=== PATIENT | male | born 1975 | race Caucasian/White ===

== ENCOUNTER 2017-03-25 21:11 | Emergency (ER) | payer MEDICAID ==
[2017-03-25 21:11] VITALS: BMI 24.7
--- NOTE | 2017-03-25 21:55 | C.PDOC ---
History Of Present Illness A 41 year old male presents to the ER c/o chest palpitations for 2 days. Patient notes the symptom is intermittent "for a while', but got worse 2 days ago. Patient was seen several times in the ER for the same complaint. 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 Time Seen by Provider: 03/25/17 21:36 Chief Complaint (Nursing): Palpitations History Per: Patient History/Exam Limitations: no limitations Onset/Duration Of Symptoms: Days Current Symptoms Are (Timing): Still Present Severity: Mild Additional History Per: Patient Past Medical History Reviewed: Historical Data, Nursing Documentation, Vital Signs Vital Signs: Last Vital Signs Temp 98 F 03/26/17 00:16 Pulse 84 03/26/17 00:16 Resp 20 03/26/17 00:16 BP 120/71 03/26/17 00:16 Pulse Ox 99 03/26/17 00:19 - Medical History PMH: Anxiety, Hypothyroidism (no med), Migraine Family History: States: Unknown Family Hx - Social History Hx Tobacco Use: No Hx Alcohol Use: Yes Hx Substance Use: No - Immunization History Hx Tetanus Toxoid Vaccination: No Hx Influenza Vaccination: No Hx Pneumococcal Vaccination: No Review Of Systems Except As Marked, All Systems Reviewed And Found Negative. Constitutional: Negative for: Fever, Chills Cardiovascular: Positive for: Palpitations. Negative for: Chest Pain Gastrointestinal: Negative for: Nausea, Vomiting Physical Exam - Physical Exam Appears: Non-toxic, No Acute Distress, Other (Obese ) Skin: Warm, Dry Head: Atraumatic, Normacephalic Eye(s): bilateral: Normal Inspection Cardiovascular: Rhythm Regular, No Murmur Respiratory: Normal Breath Sounds, No Rales, No Rhonchi, No Wheezing Neurological/Psych: Oriented x3, Normal Speech, Normal Cognition, No Other (No focal deficit) ED Course And Treatment - Laboratory Results Result Diagrams: 03/25/17 21:50 03/25/17 21:50 ECG: Interpreted By Me, Viewed By Me ECG Rhythm: Sinus Rhythm (81) ECG Interpretation: Normal Interpretation Of ECG: No ST-T changes O2 Sat by Pulse Oximetry: 99 (RA) Medical Decision Making Medical Decision Making: palpitations - r/o underlying metabolic, cardiac etiology. Plans: -EKG -Bloods labs -CXR -IV fluids -Reassess and disposition Patient is resting comfortably, and is in no acute distress. Patient was instructed to follow up with PMD in 1-2 days for further evaluation. perc neg. notified of mild leukocytosis cxr neg as read by me Disposition - Disposition Referrals: [facility] at [facility] [Outside] [facility] [Outside] Norm Crain MD [Staff Provider] - Disposition: HOME/ ROUTINE Disposition Time: 12:15 Condition: GOOD Additional Instructions: please follow up with your doctor/specialist. return to er with worsening symptoms or concerns. please discuss your lab results with your pmd. Instructions: Palpitations (ED), Leukocytosis (ED) - Clinical Impression Clinical Impression: Palpitations - Scribe Statement The provider has reviewed the documentation as recorded by the Scribe Adrian daniels All medical record entries made by the Scribe were at my direction and personally dictated by me. I have reviewed the chart and agree that the record accurately reflects my personal performance of the history, physical exam, medical decision making, and the department course for this patient. I have also personally directed, reviewed, and agree with the discharge instructions and disposition.
[2017-03-25 22:01] LABS: BASO # 0.2 K/uL (0.0-0.2); BASO % 1.2 % (0.0-2.0); EOS # 0.5 K/uL (0.0-0.7); EOS % 3.4 % (0.0-4.0); LYMPH # 2.3 K/uL (1.0-4.3); LYMPH % 16.9 % (20.0-40.0); MEAN CORPUSCULAR HEMOGLOBIN 29.5 pg (27.0-31.0); MEAN CORPUSCULAR HGB CONC 33.1 g/dL (33.0-37.0); MEAN PLATELET VOLUME 7.4 fL (7.2-11.7); MONO # 0.9 K/uL (0.0-0.8); MONO % 6.9 % (0.0-10.0); RED CELL DISTRIBUTION WIDTH 13.5 % (11.5-14.5); WHITE BLOOD COUNT 13.4 K/uL (4.8-10.8)
[2017-03-25 22:09] LABS: CHLORIDE 102 mmol/L (98-107); POTASSIUM 3.8 mmol/L (3.6-5.2); SODIUM 138 mmol/L (132-148)
[2017-03-25 22:11] LABS: GFR AFRICAN-AMERICAN > 60
[2017-03-25 22:12] LABS: ALB/GLOB RATIO 1.3 (1.0-2.1); ALKALINE PHOSPHATASE 86 U/L (38-126); ALT/SGPT 39 U/L (21-72); AST/SGOT 25 U/L (17-59); BILIRUBIN,TOTAL 0.7 mg/dL (0.2-1.3); BLOOD UREA NITROGEN 15 mg/dL (9-20); CALCIUM 8.9 mg/dl (8.6-10.4); CARBON DIOXIDE 25 mmol/L (22-30); GLUCOSE,RANDOM 116 mg/dL (75-110); TOTAL PROTEIN 7.7 g/dL (6.3-8.3)
[2017-03-25 22:13] LABS: INR 1.2
[2017-03-25 23:55] LABS: RBC URINE 3 /hpf (0-3); URINE BILIRUBIN NEGATIVE (NEGATIVE); URINE BLOOD NEGATIVE (NEGATIVE); URINE COLOR Yellow (YELLOW); URINE GLUCOSE (UA) NORMAL (Normal); URINE KETONE NEGATIVE (NEGATIVE); URINE LEUKOCYTE ESTERASE NEG Leu/uL (Negative); URINE PROTEIN NEGATIVE (NEGATIVE); URINE UROBILINOGEN NORMAL mg/dL (0.2-1.0); WBC URINE < 1 /hpf (0-5)
[2017-03-26 00:17] VITALS: BP 120/71; PULSE 84; RESP 20; TEMP 98
[2017-03-26 00:20] VITALS: O2SAT 99
--- NOTE | 2017-03-26 10:37 | RAD ---
PROCEDURE: CHEST RADIOGRAPH, 1 VIEW HISTORY: chest pain COMPARISON: Comparison is made to the previous study dated 12/01/2016 FINDINGS: LUNGS: Clear. PLEURA: No pneumothorax or pleural fluid seen. CARDIOVASCULAR: Normal. OSSEOUS STRUCTURES: No significant abnormalities. VISUALIZED UPPER ABDOMEN: Normal. OTHER FINDINGS: None. IMPRESSION: No active disease.
--- NOTE | 2017-03-27 07:46 | CARD ---
APPROVED REPORT EKG Measurement Heart [id number] <Conclusion> Normal sinus rhythm with sinus arrhythmia Possible Anterior infarct, age undetermined Abnormal ECG
== END 2017-03-26 00:17 | disposition home or self-care (01) ==
LOC: C.ER 21:11
DX: R00.2 Palpitations (principal)

== ENCOUNTER 2017-10-29 00:23 | Emergency (ER) | payer MEDICAID ==
[2017-10-29 00:24] VITALS: BMI 24.7
[2017-10-29 00:31] VITALS: TEMP 97.8
[2017-10-29] MEDS ORDERED: Lactated Ringer's 1,000 ML IV STA (00:52)
[2017-10-29 01:18] LABS: BASO # 0.1 K/uL (0.0-0.2); EOS # 0.4 K/uL (0.0-0.7); EOS % 3.9 % (0.0-4.0); HEMATOCRIT 46.3 % (35.0-51.0); LYMPH # 1.9 K/uL (1.0-4.3); LYMPH % 19.1 % (20.0-40.0); MEAN CELL VOLUME 89.3 fL (80.0-94.0); MEAN CORPUSCULAR HEMOGLOBIN 31.2 pg (27.0-31.0); MEAN CORPUSCULAR HGB CONC 34.9 g/dL (33.0-37.0); MEAN PLATELET VOLUME 7.2 fL (7.2-11.7); MONO # 0.7 K/uL (0.0-0.8); MONO % 6.8 % (0.0-10.0); RED CELL DISTRIBUTION WIDTH 13.4 % (11.5-14.5); WHITE BLOOD COUNT 10.1 K/uL (4.8-10.8)
[2017-10-29] MEDS ORDERED: Belladonna-Phenobarbital PO STA (01:20)
[2017-10-29] MEDS ORDERED: Aluminum Hydroxide/Magnesium Hydroxide Susp (30 mL) PO STA (01:20)
[2017-10-29 01:29] LABS: ALB/GLOB RATIO 1.1 (1.0-2.1); ALKALINE PHOSPHATASE 85 U/L (38-126); ALT/SGPT 51 U/L (21-72); AST/SGOT 19 U/L (17-59); BILIRUBIN,TOTAL 0.7 mg/dL (0.2-1.3); BLOOD UREA NITROGEN 7 mg/dL (9-20); CALCIUM 8.6 mg/dl (8.6-10.4); CARBON DIOXIDE 27 mmol/L (22-30); CHLORIDE 108 mmol/L (98-107); GFR AFRICAN-AMERICAN > 60; GLUCOSE,RANDOM 111 mg/dL (75-110); POTASSIUM 4.2 mmol/L (3.6-5.2); SODIUM 142 mmol/L (132-148); TOTAL PROTEIN 7.8 g/dL (6.3-8.3)
[2017-10-29] MEDS ORDERED: Aluminum Hydroxide/Magnesium Hydroxide Susp (30 mL) ONE (01:32)
[2017-10-29] MEDS ORDERED: Belladonna-Phenobarbital ONE (01:32)
[2017-10-29 02:03] VITALS: BP 107/61; PULSE 66; RESP 18; O2SAT 95
--- NOTE | 2017-10-29 04:12 | C.PDOC ---
History Of Present Illness 42 year old male presents to the ER complaining of epigastric pain for the past 1.5 days, associated with nausea. Patient is able to tolerate PO; denies vomiting, change in diet, bloody stool, hematuria, or change in diet. Time Seen by Provider: 10/29/17 00:52 Chief Complaint (Nursing): Abdominal Pain History Per: Patient History/Exam Limitations: no limitations Onset/Duration Of Symptoms: Days Current Symptoms Are (Timing): Still Present Location Of Pain/Discomfort: Epigastric Radiation Of Pain To:: None Quality Of Discomfort: Unable To Describe Associated Symptoms: Nausea. denies: Vomiting, Urinary Symptoms Exacerbating Factors: None Alleviating Factors: None Recent travel outside of the [place]: No Past Medical History Reviewed: Historical Data, Nursing Documentation, Vital Signs Vital Signs: Last Vital Signs Temp 97.8 F 10/29/17 02:02 Pulse 66 10/29/17 02:02 Resp 18 10/29/17 02:02 BP 107/61 10/29/17 02:02 Pulse Ox 95 10/29/17 04:17 - Medical History PMH: Anxiety, Hypothyroidism (no med), Migraine Surgical History: No Surg Hx Family History: States: Unknown Family Hx - Social History Hx Tobacco Use: No Hx Alcohol Use: Yes Hx Substance Use: No - Immunization History Hx Tetanus Toxoid Vaccination: No Hx Influenza Vaccination: No Hx Pneumococcal Vaccination: No Review Of Systems Constitutional: Negative for: Fever, Chills Gastrointestinal: Positive for: Nausea, Abdominal Pain. Negative for: Vomiting , Other (bloody stool) Genitourinary: Negative for: Hematuria Physical Exam - Physical Exam Appears: Non-toxic, No Acute Distress Skin: Normal Color, Warm, Dry Head: Atraumatic, Normacephalic Eye(s): bilateral: Normal Inspection Oral Mucosa: Moist Neck: Normal, Supple Chest: Symmetrical, No Tenderness Cardiovascular: Rhythm Regular Respiratory: Normal Breath Sounds, No Rales, No Rhonchi, No Wheezing Gastrointestinal/Abdominal: Soft, Tenderness (Mild epigastric) Neurological/Psych: Oriented x3, Normal Speech ED Course And Treatment - Laboratory Results Result Diagrams: 10/29/17 01:13 10/29/17 01:13 O2 Sat by Pulse Oximetry: 95 (room air) Pulse Ox Interpretation: Normal Progress Note: Blood work and urinalysis ordered. , viscous lidocaine, maalox, pepcid, zofran, and IV fluids administered. On reevaluation, patient reports improvement of pain and feels comfortable going home. Disposition - Disposition Referrals: Aracely Mcbride, [Non-Staff] - Disposition: HOME/ ROUTINE Disposition Time: 01:40 Condition: IMPROVED Additional Instructions: Thank you for letting us take care of you today. The emergency medical care you received today was directed at your acute symptoms. If you were prescribed any medication, please fill it and take as directed. It may take several days for your symptoms to resolve. Return to the Emergency Department if your symptoms worsen, do not improve, or if you have any other problems. Please contact your doctor or call one of the physicians/clinics you have been referred to that are listed on the Patient Visit Information form that is included in your discharge packet. Bring any paperwork you were given at discharge with you along with any medications you are taking to your follow up visit. Our treatment cannot replace ongoing medical care by a primary care provider (PCP) outside of the emergency department. Thank you for allowing the [facility] team to be part of your care today. Follow up with your doctor in 2-3 days for re-evaluation and further management. Prescriptions: Ranitidine HCl [Zantac] 150 mg PO BID #20 tablet Instructions: Gastroenteritis (ED) Forms: [employer] (Syriac) - Clinical Impression Clinical Impression: Gastritis - Scribe Statement The provider has reviewed the documentation as recorded by the Scribe All Fajardo All medical record entries made by the Scribe were at my direction and personally dictated by me. I have reviewed the chart and agree that the record accurately reflects my personal performance of the history, physical exam, medical decision making, and the department course for this patient. I have also personally directed, reviewed, and agree with the discharge instructions and disposition.
== END 2017-10-29 03:21 | disposition home or self-care (01) ==
LOC: C.ER 00:23
DX: K29.70 Gastritis, unspecified, without bleeding (principal)
CPT/HCPCS: 80053; 83690; 85025; 96361; 96374; 96375; 99284; J2405; J7120

== ENCOUNTER 2018-06-12 08:51 | Day surgery (SDC) | payer MEDICAID ==
[2018-06-12] MEDS ORDERED: Dextrose 5%/0.45% NS 1,000 ML IV SCH (09:00)
[2018-06-12] MEDS ORDERED: Morphine 10 mg/5 ml Oral Soln PO PRN (09:06)
[2018-06-12] MEDS ORDERED: ceFAZolin 1 gm in NS 1 GM/100 ML BAG IVPB ONE (10:24)
[2018-06-12] MEDS ORDERED: Lactated Ringer's 1,000 ML IV ONE (10:34)
[2018-06-12] MEDS ORDERED: Propofol 10 mg/ml Inj (20 ML) ONE (10:37)
[2018-06-12] MEDS ORDERED: HYDROmorphone 0.5 mg/0.5 ml ISec IVP PRN (11:09)
[2018-06-12] MEDS ORDERED: Lactated Ringer's 1,000 ML IV SCH (11:15)
[2018-06-12 15:19] VITALS: BP 114/74; PULSE 82; RESP 20; TEMP 98; O2SAT 99
--- NOTE | 2018-06-12 22:20 | OP ---
PROCEDURE DATE: 06/12/2018 PREOPERATIVE DIAGNOSIS: Chronic tonsillitis. POSTOPERATIVE DIAGNOSIS: Chronic tonsillitis. PROCEDURE: Tonsillectomy. SIGNIFICANT FINDINGS: 2+ tonsils. PROCEDURE: The patient was brought into the room, placed in supine position. Anesthesia was initiated through an ET tube. The patient was draped in usual manner. Mouth gag was placed in oral cavity, opened, suspended on the [employer] animal treatment investigator the usual manner. The right tonsil was grabbed, pulled medially. Incision was made in the anterior tonsillar pillar using coblation. Dissection was done between tonsil and tonsillar fossa using coblation until the tonsil was removed. Bleeding was controlled using coblation. Next, the other tonsil was grabbed, pulled medially. Incision was made in the anterior tonsillar pillar using coblation. Dissection was done between tonsil and tonsillar fossa using coblation until the tonsil was removed. Bleeding was controlled using coblation. Both tonsillar beds were rubbed vigorously with a coblation wand. No bleeding was noted. Mouth gag was let down for 30 seconds, pulled back up, no bleeding was noted. Mouth gag was taken down and removed. The patient was taken off anesthesia and taken to recovery room in stable manner. Tj Philip MD
== END 2018-06-12 13:45 | disposition home or self-care (01) ==
LOC: C.SDS 08:51
PROVIDERS: ATTEND Otolaryngology
DX: J35.01 Chronic tonsillitis (principal)
CPT/HCPCS: 42826; 88304; J0690; J1100; J1170; J2704; J3010; J7120

== ENCOUNTER 2018-06-14 23:53 | Emergency (ER) | payer MEDICAID ==
[2018-06-14 23:55] VITALS: BMI 24.7
[2018-06-15] MEDS ORDERED: Sodium Chloride 0.9% 1,000 ML IV ONE ×2 (01:01→03:09)
--- NOTE | 2018-06-15 01:12 | C.PDOC ---
History Of Present Illness 42 y/o male presents to the ER due to difficulty swallowing/ breathing since last friday post tonsilectomy OP. Upon arrival the patient was febrile. Patient denies any nausea or vomiting. Time Seen by Provider: 06/15/18 00:56 Chief Complaint (Nursing): ENT Problem History Per: Patient Onset/Duration Of Symptoms: Days Current Symptoms Are (Timing): Still Present Quality (Mouth/Throat): Swelling (in throat) Past Medical History Vital Signs: Last Vital Signs Temp 101.2 F H 06/15/18 00:07 Pulse 92 H 06/15/18 00:07 Resp 16 06/15/18 00:07 BP 128/83 06/15/18 00:07 Pulse Ox 97 06/15/18 04:30 - Medical History PMH: Anxiety, Hypothyroidism (MY LEVELS ARE NORMAL -NO NEED FOR MEDS.(06/05/18)) , Migraine Denies: HIV, HTN, Chronic Kidney Disease, Sexually Transmitted Disease Other PMH: Chronic tonsilitis Other Surgeries: Left knee - repair torn meniscus Family History: States: Unknown Family Hx - Social History Hx Tobacco Use: No Hx Alcohol Use: Yes Hx Substance Use: No - Immunization History Hx Tetanus Toxoid Vaccination: No Hx Influenza Vaccination: No Hx Pneumococcal Vaccination: No Review Of Systems Except As Marked, All Systems Reviewed And Found Negative. Constitutional: Positive for: Fever ENT: Positive for: Throat Swelling Cardiovascular: Positive for: Orthopnea Respiratory: Positive for: Shortness of Breath Gastrointestinal: Positive for: Rectal Pain. Negative for: Nausea, Vomiting Physical Exam - Physical Exam Appears: Non-toxic, No Acute Distress Skin: Normal Color, Warm, Dry Head: Atraumatic, Normacephalic Eye(s): bilateral: PERRL, EOMI Ear(s): Bilateral: Normal Nose: Normal Throat: Other (swelling) Neck: Normal ROM, Supple Chest: Symmetrical Cardiovascular: Rhythm Regular Respiratory: Normal Breath Sounds, No Rales, No Rhonchi, No Stridor Gastrointestinal/Abdominal: Normal Exam, Soft, No Tenderness Back: Normal Inspection Extremity: Normal ROM Extremity: Bilateral: Normal Color And Temperature, Normal ROM Pulses: Left Dorsalis Pedis: Normal, Right Dorsalis Pedis: Normal Neurological/Psych: Oriented x3 Gait: Steady ED Course And Treatment - Laboratory Results Result Diagrams: 06/15/18 01:25 06/15/18 01:25 O2 Sat by Pulse Oximetry: 97 (RA) Pulse Ox Interpretation: Normal - CT Scan/US CT Neck Other Rad Studies (CT/US): Read By Radiologist, Radiology Report Reviewed CT/US Interpretation: FINDINGS: Oropharynx: Trace free fluid in the peritonsillar regions bilaterally. No organized fluid collection or. acute finding. Hypopharynx: Unremarkable. Larynx: Unremarkable. Normal epiglottis. Trachea: Unremarkable. Retropharyngeal space: Unremarkable. Submandibular/ parotid glands: Unremarkable. Glands are normal in size. Thyroid: Unremarkable. No enlarged or calcified nodules. Bones/joints: No acute fracture. Soft tissues: Unremarkable. Vasculature: No acute findings. Lymph nodes: Unremarkable. No lymphadenopathy. Lung apices: Unremarkable as visualized. . IMPRESSION: Trace free fluid in the peritonsillar regions bilaterally. No organized fluid collection or acute finding. Medical Decision Making Medical Decision Making: Impression: 42 y/o male with difficulty breathing/ swallowing post tonsillectomy OP Plan: --CT neck --CMP --CBC --IV Fluids 0302 CT FINDINGS: Oropharynx: Trace free fluid in the peritonsillar regions bilaterally. No organized fluid collection or acute finding. Hypopharynx: Unremarkable. Larynx: Unremarkable. Normal epiglottis. Trachea: Unremarkable. Retropharyngeal space: Unremarkable. Submandibular/parotid glands: Unremarkable. Glands are normal in size. Thyroid: Unremarkable. No enlarged or calcified nodules. Bones/joints: No acute fracture. Soft tissues: Unremarkable. Vasculature: No acute findings. Lymph nodes: Unremarkable. No lymphadenopathy. Lung apices: Unremarkable as visualized. IMPRESSION: Trace free fluid in the peritonsillar regions bilaterally. No organized fluid collection or acute finding. [address] Philip who recommends IVP Decadron and IV fluids. Patient to follow up with him in office tomorrow. Disposition Discussed With : Tj Philip Doctor Will See Patient In The: Office Counseled Patient/Family Regarding: Diagnosis - Disposition Referrals: Tj Philip MD [Staff Provider] - Disposition: HOME/ ROUTINE Disposition Time: 07:00 Condition: STABLE Instructions: Postoperative Pain (DC) Forms: [employer] (Turkish) - POA Present On Arrival: None - Clinical Impression Clinical Impression: Post-tonsillectomy pain - Scribe Statement The provider has reviewed the documentation as recorded by the Scribe (Liv Stauffer) Provider Attestation: All medical record entries made by the Scribe were at my direction and personally dictated by me. I have reviewed the chart and agree that the record accurately reflects my personal performance of the history, physical exam, medical decision making, and the department course for this patient. I have also personally directed, reviewed, and agree with the discharge instructions and disposition.
[2018-06-15 01:28] LABS: BASO # 0.1 K/uL (0.0-0.2); EOS # 0.1 K/uL (0.0-0.7); EOS % 0.7 % (0.0-4.0); HEMOGLOBIN 15.5 g/dL (12.0-18.0); LYMPH # 1.8 K/uL (1.0-4.3); LYMPH % 12.9 % (20.0-40.0); MEAN CELL VOLUME 89.2 fL (80.0-94.0); MEAN CORPUSCULAR HEMOGLOBIN 30.9 pg (27.0-31.0); MEAN CORPUSCULAR HGB CONC 34.6 g/dL (33.0-37.0); MEAN PLATELET VOLUME 7.3 fL (7.2-11.7); MONO # 1.1 K/uL (0.0-0.8); MONO % 8.3 % (0.0-10.0); NEUT # 10.6 K/uL (1.8-7.0); NEUT % 77.1 % (50.0-75.0); RBC 5.02 Mil/uL (4.40-5.90); RED CELL DISTRIBUTION WIDTH 13.2 % (11.5-14.5); WHITE BLOOD COUNT 13.7 K/uL (4.8-10.8)
[2018-06-15 02:02] LABS: CALCIUM 9.5 mg/dl (8.6-10.4); GFR AFRICAN-AMERICAN > 60; GFR NON-AFRICAN AMERICAN > 60
[2018-06-15 02:16] LABS: ALB/GLOB RATIO 1.4 (1.0-2.1); ALBUMIN 4.9 g/dL (3.5-5.0); ALT/SGPT 26 U/L (21-72); AST/SGOT 30 U/L (17-59); BLOOD UREA NITROGEN 12 mg/dL (9-20)
[2018-06-15] MEDS ORDERED: cefTRIAXone IV 1 gm in Dextros 50 ML IVPB ONE ×2 (02:44→03:02)
[2018-06-15] MEDS ORDERED: Dexamethasone 4 mg/1 ml IVP STA (03:09)
[2018-06-15 05:30] VITALS: BP 132/74; PULSE 72; RESP 20; TEMP 97.2; O2SAT 98
--- NOTE | 2018-06-15 13:27 | CT ---
Date of service: 06/15/2018 PROCEDURE: CT NECK WITHOUT CONTRAST HISTORY: Post Op Tonsillectomy bed 12 COMPARISON: Comparison is made with the previous ultrasound examination of the thyroid gland dated 02/09/2016. No prior CT of the neck available for comparison. TECHNIQUE: CT of the neck without intravenous contrast. Coronal and sagittal reformats generated. Radiation dose: DLP 425.33 mGy-cm This CT exam was performed using one or more of the following dose reduction techniques: Automated exposure control, adjustment of the mA and/or kV according to patient size, and/or use of iterative reconstruction technique. FINDINGS: NASOPHARYNX: Unremarkable. SUPRAHYOID NECK: Status post tonsillectomy. There is a trace amount of fluid at the tonsil bed bilaterally. No evidence of discrete fluid collection to suggest hematoma or abscess formation. Otherwise unremarkable Oropharynx, oral cavity, parapharyngeal space and retropharyngeal space. INFRAHYOID NECK: Unremarkable larynx, hypopharynx, and supraglottic space. Vocal cords intact. MASS: None. GLANDS: Parotid and submandibular glands unremarkable. Normal size thyroid gland, without nodule. LYMPH NODES: Normal. No lymphadenopathy. CERVICAL SPINE: No fracture or focal lesion. OTHER FINDINGS: None. IMPRESSION: Trace amount of fluid at the tonsils bed likely represent postsurgical seroma. No evidence of discrete drainable fluid collection. No evidence of acute pathology otherwise in the neck. Preliminary report was submitted by [facility].
== END 2018-06-15 05:25 | disposition home or self-care (01) ==
LOC: C.ER 23:53
DX: G89.18 Other acute postprocedural pain (principal)
CPT/HCPCS: 70490; 80053; 85025; 87040; 96361; 96365; 96375; 99283; J0696; J1100; J7030

== ENCOUNTER 2018-09-26 01:49 | Emergency (ER) | payer MEDICAID ==
[2018-09-26 01:50] VITALS: BMI 24.7
[2018-09-26 02:10] VITALS: O2SAT 98
--- NOTE | 2018-09-26 02:16 | C.PDOC ---
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 Denies any chest pain, shortness of breath, fever, chills, cough, nausea, vomiting, or diarrhea. Denies taking any medication for the symptoms. Chief Complaint (Nursing): Palpitations History Per: Patient History/Exam Limitations: no limitations Onset/Duration Of Symptoms: Hrs (1) Current Symptoms Are (Timing): Still Present Past Medical History Reviewed: Historical Data, Nursing Documentation, Vital Signs Vital Signs: Last Vital Signs Temp Pulse 73 09/26/18 02:08 Resp 16 09/26/18 02:08 BP 112/54 L 09/26/18 02:08 Pulse Ox 98 09/26/18 02:08 - Medical History PMH: Anxiety, Hypothyroidism (MY LEVELS ARE NORMAL -NO NEED FOR MEDS.(06/05/18)), Migraine Denies: HIV, HTN, Chronic Kidney Disease, Sexually Transmitted Disease Surgical History: Tonsillectomy Family History: States: No Known Family Hx - Social History Hx Tobacco Use: No Hx Alcohol Use: Yes Hx Substance Use: No - Immunization History Hx Tetanus Toxoid Vaccination: No Hx Influenza Vaccination: No Hx Pneumococcal Vaccination: No Review Of Systems Except As Marked, All Systems Reviewed And Found Negative. Constitutional: Negative for: Fever, Chills Cardiovascular: Positive for: Palpitations. Negative for: Chest Pain Respiratory: Negative for: Cough, Shortness of Breath Gastrointestinal: Negative for: Nausea, Vomiting, Diarrhea Skin: Negative for: Rash Physical Exam - Physical Exam Appears: Non-toxic, No Acute Distress Skin: Warm, Dry, No Rash Head: Normacephalic Eye(s): bilateral: Normal Inspection Neck: Normal ROM, Supple Chest: Symmetrical, No Tenderness Cardiovascular: Rhythm Regular, No Murmur Respiratory: Normal Breath Sounds, No Rales, No Rhonchi, No Wheezing Gastrointestinal/Abdominal: Soft, No Tenderness Extremity: Normal ROM, No Pedal Edema Neurological/Psych: Oriented x3, Normal Speech Gait: Steady ED Course And Treatment - Laboratory Results Result Diagrams: 09/26/18 02:23 09/26/18 02:23 ECG: Interpreted By Me, Viewed By Me ECG Rhythm: Sinus Rhythm ECG Interpretation: Normal, No Acute Changes Interpretation Of ECG: NSR, occa. premature supraventricular complex, normal tra cings Rate From EC O2 Sat by Pulse Oximetry: 98 (RA) Pulse Ox Interpretation: Normal Medical Decision Making Medical Decision Making: Plan - EKG - Bloodwork - Xanax 0.25mg PO Disposition Counseled Patient/Family Regarding: Diagnosis - Disposition Referrals: [facility] at [facility] [Outside] Disposition: Trans to Other Acute Care Hosp Disposition Time: 02:57 Condition: STABLE Additional Instructions: avoid stimulnts. Prescriptions: ALPRAZolam [Xanax] 0.25 mg PO BID #7 tab Instructions: Palpitations, Arrhythmias (DC) Forms: [employer] (Indonesian) - POA Present On Arrival: None - Clinical Impression Clinical Impression: Heart palpitations - Scribe Statement The provider has reviewed the documentation as recorded by the Scribe Hermelinda Garcia All medical record entries made by the Scribe were at my direction and personally dictated by me. I have reviewed the chart and agree that the record accurately reflects my personal performance of the history, physical exam, medical decision making, and the department course for this patient. I have also personally directed, reviewed, and agree with the discharge instructions and disposition.
[2018-09-26 02:27] LABS: BASO # 0.2 K/uL (0.0-0.2); BASO % 1.4 % (0.0-2.0); EOS # 0.3 K/uL (0.0-0.7); EOS % 2.7 % (0.0-4.0); HEMOGLOBIN 14.9 g/dL (12.0-18.0); LYMPH # 2.7 K/uL (1.0-4.3); LYMPH % 24.4 % (20.0-40.0); MEAN CELL VOLUME 87.8 fL (80.0-94.0); MEAN CORPUSCULAR HEMOGLOBIN 30.2 pg (27.0-31.0); MEAN CORPUSCULAR HGB CONC 34.4 g/dL (33.0-37.0); MEAN PLATELET VOLUME 7.1 fL (7.2-11.7); MONO # 0.8 K/uL (0.0-0.8); MONO % 7.4 % (0.0-10.0); NEUT # 7.2 K/uL (1.8-7.0); NEUT % 64.1 % (50.0-75.0); RBC 4.94 Mil/uL (4.40-5.90); RED CELL DISTRIBUTION WIDTH 13.5 % (11.5-14.5); WHITE BLOOD COUNT 11.3 K/uL (4.8-10.8)
[2018-09-26 02:37] LABS: BLOOD UREA NITROGEN 12 mg/dL (9-20); CALCIUM 8.8 mg/dl (8.6-10.4); GFR NON-AFRICAN AMERICAN > 60
[2018-09-26 02:40] LABS: ALB/GLOB RATIO 1.6 (1.0-2.1); ALBUMIN 4.5 g/dL (3.5-5.0); ALT/SGPT 29 U/L (21-72); AST/SGOT 32 U/L (17-59)
[2018-09-26 02:45] LABS: BARBITURATES, UR NEGATIVE (NEGATIVE); BENZODIAZEPINES, UR NEGATIVE (NEGATIVE); OPIATES, UR NEGATIVE (NEGATIVE); PHENCYCLIDINE, UR NEGATIVE (NEGATIVE)
[2018-09-26 03:31] VITALS: BP 118/64; PULSE 70; RESP 14
--- NOTE | 2018-09-28 13:49 | CARD ---
APPROVED REPORT Date of service: 09/26/2018 EKG Measurement Heart [id number] <Conclusion> Sinus rhythm with premature supraventricular complexes Otherwise normal ECG
== END 2018-09-26 03:31 | disposition home or self-care (01) ==
LOC: C.ER 01:49
DX: R00.2 Palpitations (principal)